=== PATIENT | female | born 1970 | race Hispanic/Latino ===

== ENCOUNTER 2024-02-05 17:52 | Emergency (ER) | payer MEDICARE ==
[~2024-02-05] VITALS: Ht 167.6 cm; Wt 137.9 kg
[2024-02-05 19:32] LABS: BASOPHILS # (AUTO) 0.05 K/uL (0.00-0.20); BASOPHILS % (AUTO) 0.5 % (0.0-5.0); EOSINOPHILS # (AUTO) 0.14 K/uL (0.00-0.70); EOSINOPHILS % (AUTO) 1.5 % (0.0-8.0); HEMATOCRIT 31.3 % (36-48); IMMATURE GRANULOCYTE ABSOLUTE 0.03 K/uL (0-1); LYMPHOCYTES # (AUTO) 2.2 K/uL (1.0-4.8); MEAN CORPUSCULAR HEMOGLOBIN 20.9 pg (27.0-33.0); MEAN CORPUSCULAR HGB CONC 29.4 g/dL (32.0-36.0); MONOCYTES # (AUTO) 0.5 K/uL (0.1-1.0); MONOCYTES % (AUTO) 5.6 % (3.0-13.0); NEUTROPHILS # (AUTO) 6.5 K/uL (1.8-7.7); NEUTROPHILS % (AUTO) 69.1 % (40.0-77.0); PLATELET COUNT (AUTO) 404 K/uL (130-400); RED BLOOD CELL COUNT(AUTO) 4.41 MIL/uL (4.00-5.50); RED CELL DISTRIBUTION WIDTH 17.3 % (11.0-15.5); WHITE BLOOD COUNT (AUTO) 9.4 K/uL (4.8-10.8)
[2024-02-05] MEDS: ACETAMINOPHEN 500 MG TABLET PO ONE (19:43)
[2024-02-05 19:47] LABS: ALBUMIN 3.5 g/dL (3.5-5.0); BILIRUBIN,TOTAL 0.3 mg/dL (0.2-1.0); TOTAL PROTEIN, SERUM 8.1 g/dL (6.0-8.3)
[2024-02-05] MEDS ORDERED: IBUP-2077 PO (20:31)
[2024-02-05 20:43] VITALS: BP 143/79; PULSE 81; RESP 20; O2SAT 99
[2024-02-05] MEDS ORDERED: ACET-2079 PO (20:44)
[2024-02-05] MEDS: HYDROCODONE/ACETAMINOPHEN 5/325 MG TAB PO SCH (21:03)
== END 2024-02-05 21:13 | disposition home or self-care (01) ==
LOC: EDH 17:52
DX: S70.02XA Contusion of left hip, initial encounter (principal); S80.02XA Contusion of left knee, initial encounter; S40.012A Contusion of left shoulder, initial encounter; E66.9 Obesity, unspecified; I10 Essential (primary) hypertension; E11.9 Type 2 diabetes mellitus without complications; J45.909 Unspecified asthma, uncomplicated; Z98.890 Other specified postprocedural states; W18.39XA Other fall on same level, initial encounter; Y93.89 Activity, other specified; Y92.89 Other specified places as the place of occurrence of the external cause; Y99.8 Other external cause status
CPT/HCPCS: 36415; 73030; 73502; 73562; 80053; 84484; 85025; 93005

== ENCOUNTER 2024-09-14 19:57 | Emergency (ER) | payer MEDICARE ==
[~2024-09-14] VITALS: Ht 170.2 cm; Wt 149.2 kg
[~2024-09-14 19:57] MED LIST: ACET-2079 PO; IBUP-2077 PO
[2024-09-14 20:26] VITALS: BP 155/92; PULSE 90; RESP 20; TEMP 97.8
--- NOTE | 2024-09-14 20:54 | ERN ---
ED Note History of Present Illness Stated Complaint: MECHANICAL FALL Chief Complaint: Ankle Problem Time Seen by MD: 19:59 Time Seen by Midlevel: 19:59 Dictation: The patient is a 54-year-old female with a history of asthma, depression , hysterectomy who presents to the emergency department requesting a cast to her right ankle. Patient reports that she fell week ago on Saturday and twisted her ankle. Reports she went to [facility] where she told her she had a fractured and referred her to orthopedic but has not been able to follow up due to insurance purposes. Patient reports she had initially a splint but it got ugly and was removed. Denies any other injuries. Allergies: Coded Allergies: No Known Allergies (Unverified Allergy, Unknown, 07/15/19) Home Meds Active Scripts Acetaminophen with Codeine (Acetaminophen-Cod #3 Tablet) 300 Mg-30 Mg Tablet, 1 TAB PO Q4H PRN for mod pain, #10 TAB Prov:AGUILA INMAN GENERAL MILLING SUPERINTENDENT 02/05/24 Ibuprofen (Ibuprofen 800 mg Tab) 800 Mg Tab, 800 MG PO Q8H PRN for fever or pain, #30 TAB 0 Refills Prov:AGUILA INMAN GENERAL MILLING SUPERINTENDENT 02/05/24 Past Medical History Past Medical History: Asthma, Depression, Hypertension, Other Additional Past Medical Hx: HX OF PTSD Surgical History: Hysterectomy History: Not Applicable RN Note Reviewed/Agreed w/PFSH: Yes Review of System Dictation Constitutional: Negative for fever,chills, and weight loss Eyes: Negative for injury, pain,redness, and discharge ENT: Negative for injury,pain or swelling Cardiovascular: Negative for chest pain, palpitations, and edema Respiratory: Negative for shortness of breath, cough, and wheezing, Abdomen/GI: Negative for abdominal pain, nausea, vomiting, diarrhea, and cons tipation Back: Negative for injury and pain : Negative for injury, bleeding and discharge MS/Extremity: Negative for injury and deformity. Positive for right ankle pain Skin: Negative for rash, and discoloration Neuro: Negative for headache, weakness, numbness, tingling, and seizure Psych: Negative for suicide ideation, homicidal ideation, and hallucinations Initial Vital Sign VS Vital Signs Date Time Temp Pulse Resp B/P (MAP) Pulse Ox O2 Delivery O2 Flow Rate FiO2 09/14/24 20:26 97.9 90 20 155/92 96 Room Air Physical Exam Dictation Vital Signs reviewed General Appearance: Alert, oriented x 3, no acute distress, well developed, nourished. Head and Face: non-traumatic. Eyes: PERRL, pink conjunctivas, eyelid no trauma, anterior chamber with arcus senilis. Ears: Pinnas intact and no signs of trauma or erythema ear canals clear and no discharge TM no erythema Nose: No discharge, no bleeding. Oropharynx: Mouth normal, tongue pink. pharynx clear,no erythema, tonsils no exudates, no abscesses noted, mucous membrane moist Neck: Supple, non-tender, no thyromegaly, no masses, no JVD, no bruits Breast:Deferred Chest:No tenderness, no crepitus, no paradoxical movement, no retractions Lungs:Clear, well-ventilated, symmetric, no rales, no wheezing, no rhonchi, no stridor, good breath sounds bilaterally Heart: Regular rate, regular rhythm, no murmur, no gallops Vascular: no peripheral edema, dorsalis pedis 3+ bilaterally Abdomen: Soft, positive bowel sounds, nondistended, no guarding, nontender, no rebound, no masses no hepatomegaly, no splenomegaly, no Dave's sign, no hernias. Rectal: Deferred Genital: Deferred Neurological: Normal speech, motor function intact, sensory function intact Musculoskeletal: Neck nontender, full range of motion, back nontender, full range of motion, Extremities: nontender, full range of motion , mild swelling to right ankle, full range of motion, no open wounds, cap refill less than 2 seconds Skin: Color pink, dry, no turgor, no rash, no lacerations, no abrasions, no contusions, Lymphatic: Deferred Results (Laboratory/Radiology) Labs Reviewed?: Yes ED Course ED Course Orders Procedure Category Date Status Time *Nursing CPOE 09/14/24 Transmitted Communication: 20:16 Vital Signs Date Time Temp Pulse Resp B/P (MAP) Pulse Ox O2 Delivery O2 Flow Rate FiO2 09/14/24 20:26 97.9 90 20 155/92 96 Room Air Medical Decision Making MDM The patient is a 54-year-old female with a history of asthma, depression , hysterectomy who presents to the emergency department requesting a cast to her right ankle. Patient reports that she fell week ago on Saturday and twisted her ankle. Reports she went to [facility] where she told her she had a fractured and referred her to orthopedic but has not been able to follow up due to insurance purposes. Patient reports she had initially a splint but it got ugly and was removed. Denies any other injuries. Patient's ankle resplinted. Patient at this time does not want another x-ray and just wants her ankle splinted. Reports she is trying to get a hold of her orthopedic and schedule a sooner appointment. Patient does not want to mother referral to orthopedic and wants to follow up with her own orthopedic that she has been following up for a shoulder injury. Patient reports she is taking [place] at home for the pain. Patient in no acute distress, nontoxic appearance, neurovascular intact. Patient refuses crutches. States she can not hop on them. Differential diagnosis: Ankle sprain, ankle fracture, compartment syndrome Need for hospitalization: Patient does not meet criteria for hospitalization. There are no social concerns with this patient. DX & DISP Disposition: Discharge Departure Impression: Primary Impression: Right ankle pain Condition: Stable Additional Instructions: Please follow up with your orthopedic as soon as possible. Please keep your spl int clean and dry. If symptoms worsen please return to ER. FOLLOW-UP WITH PRIMARY CARE PROVIDER IN 1 TO 2 DAYS. TAKE MEDICATIONS DIRECTED HERE IN THE EMERGENCY ROOM. OKAY TO CONTINUE HOME MEDICATIONS UNLESS OTHERWISE DISCUSSED DURING YOUR VISIT IN THE EMERGENCY ROOM TODAY. RETURN TO YOUR NEAREST EMERGENCY ROOM IF SYMPTOMS WORSEN OR IF THERE IS NO IMPROVEMENT. CALL 911 IF YOU NEED IMMEDIATE ASSISTANCE. TAKE TYLENOL OR MOTRIN [id number] NEEDED AND IF NO CONTRAINDICATIONS ARE PRESENT. INCREASE ORAL HYDRATION. A WOUND CULTURE OR URINE CULTURE WAS ORDERED HERE IN THE EMERGENCY ROOM DEPARTMENT PLEASE FOLLOW-UP WITH PRIMARY CARE PROVIDER AND ADVISE THEM TO GET REPEAT PORTS FROM OUR FACILITY. IF YOU HAD ANY BISMARK WRAP/SPLINTS THAT WERE APPLIED HERE, PLEASE DO NOT REMOVE THEM UNTIL YOU SEE YOUR PRIMARY CARE OR SPECIALTY. Referrals: RADU ARCINIEGA MD (PCP) Time of Disposition: 21:03 I have reviewed the case, and I agree with, Diagnosis and Plan GIL SWIFT Sep 14, 2024 20:54
== END 2024-09-14 21:20 | disposition home or self-care (01) ==
LOC: EDH 19:57
DX: M25.571 Pain in right ankle and joints of right foot (principal); I10 Essential (primary) hypertension; J45.909 Unspecified asthma, uncomplicated; F32.A Depression, unspecified; Z90.710 Acquired absence of both cervix and uterus; X50.1XXA Overexertion from prolonged static or awkward postures, initial encounter; Y93.89 Activity, other specified; Y92.89 Other specified places as the place of occurrence of the external cause; Y99.8 Other external cause status
CPT/HCPCS: 29515; 99283

== ENCOUNTER 2025-07-09 07:55 | Day surgery (SDC) | payer MEDICARE ==
[2025-07-07 12:45] LABS: IMMATURE GRANULOCYTE ABSOLUTE 0.01 K/uL (0-1); NUCLEATED RED BLOOD CELLS 0.0 % (0.0-0.19); PLATELET COUNT (AUTO) 321 K/uL (130-400); RED BLOOD CELL COUNT(AUTO) 4.32 MIL/uL (4.00-5.50); RED CELL DISTRIBUTION WIDTH 15.6 % (11.0-15.5); WHITE BLOOD COUNT (AUTO) 6.7 K/uL (4.8-10.8)
[2025-07-07 12:52] LABS: CREATININE 0.8 mg/dL (0.5-1.0); GLOMERULAR FILTR. RATE CALC 88.0 mL/min (>90); GLUCOSE,RANDOM 99.0 mg/dL (70-105); SODIUM SERUM 141.0 mmol/L (136-145); UREA NITROGEN, BLOOD 12.0 mg/dL (7-18)
[2025-07-07 12:55] LABS: INR 0.96 (0.85-1.15)
[2025-07-07 13:03] VITALS: BP 145/89; PULSE 66; RESP 17; TEMP 97.3
[~2025-07-09] VITALS: Ht 170.2 cm; Wt 140.4 kg
[2025-07-09] VITALS (17 sets, daily range): BP systolic 100–147; BP diastolic 50–78; PULSE 50–73; RESP 14–20; TEMP 97.2–97.5
[~2025-07-09 07:55] MED LIST changes: -ACET-2079 PO; -IBUP-2077 PO; +LIDOCAINE PF 100MG/5ML (2%) SYRINGE 5ML ONE; +MIDAZOLAM HCL 1 MG/ML 2ML VIAL ONE
[2025-07-09] MEDS ORDERED: SUCCINYLCHOLINE CHLORIDE 20 MG/ML 10 ML VIAL ONE (08:32)
[2025-07-09] MEDS: LACTATED RINGERS 1000ML 1,000 ML IV ONE (08:51)
[2025-07-09] MEDS ORDERED: GLYCOPYRROLATE 0.2 MG/ML 5 ML VIAL ONE ×2 (10:12→13:03)
[2025-07-09] MEDS ORDERED: NEOSTIGMINE METHYLSULFATE 1MG/ML IV ONE (12:49)
--- NOTE | 2025-07-09 15:41 | NUR ---
Full and complete discharge instructions given to Patient and Family both verbally and in writing. Neurovascularly intact. Stated Pain a 1-2. SO at side appearing very supportiveTolerated fluids and voided in bathroom. PIV removed with catheter tip intact. W/C to POV with Family to home.
--- NOTE | 2025-07-09 19:47 | OP ---
Operative Note: DATE OF PROCEDURE: 07/09/25 SURGEON: BHUMI RODRIGUEZ MD SURGICAL TRAINING SPECIALIST: Go Jackson ANESTHESIA: General ANESTHESIOLOGIST/LAB DIRECTOR: Red Fox CRNA PREOPERATIVE DIAGNOSIS: Right shoulder rotator cuff tear, labral tear, subacromial impingement, acromioclavicular joint osteoarthritis POSTOPERATIVE DIAGNOSIS: Right shoulder rotator cuff tear, labral tear, subacromial impingement, acromioclavicular joint osteoarthritis PROCEDURE: Right shoulder arthroscopic rotator cuff repair, labral debridement, subacromial decompression, distal clavicle excision ESTIMATED BLOOD LOSS: 10 cc FINDINGS: On insertion of the arthroscope into the joint we noted significant diffuse synovitis present. High-grade partial-thickness tearing of the rotator cuff adjacent to the long head of the biceps tendon. Near full-thickness tearing in the anterior portion of the supraspinatus. Degenerative tearing of the labrum. Biceps anchor intact with healthy-appearing biceps. The remainder of the rotator cuff appeared intact. We debrided the rotator cuff synovium and labrum. We then used an 18 gauge spinal needle and a PDS suture to valorie the partial-thickness tear. We identified this region after resecting the subacromial bursa and completed the tear. It was repaired with the single SwiveLock anchor. Distal clavicle was resected and a lateral bone spurs from the subacromial space were removed. INDICATIONS: 54-year-old female with a history of right shoulder pain. They were failing conservative management and found on MRI to have high-grade partial-thickness tearing of the rotator cuff. Clinically they also had evidence of subacromial impingement and symptomatic AC joint osteoarthritis. After discussion of the risk, benefits, and alternatives, the patient voluntarily agreed to undergo the aforementioned procedure. DESCRIPTION OF PROCEDURE: Patient was properly identified in the preoperative holding area. Surgical site marking was verified and surgery consent reviewed. The patient was then taken to the operating room and placed in supine position on the OR table. After induction of general anesthesia, preoperative antibiotics were given, all bony prominences were well-padded as the patient was transitioned into beachchair position. The right upper extremity was then prepped and draped in usual sterile fashion. Surgical timeout was done verifying correct surgery, side, site, and location to be performed. We then began the procedure by using an 18-gauge spinal needle to inject the shoulder joint with normal saline to distend the joint capsule. A posterior lateral portal was established using 11 blade and we inserted our arthroscope through this portal. We established an anterior portal using needle localization under direct visualization and placed a working cannula through this portal. We then performed a diagnostic arthroscopy with the aforementioned findings. We then evaluated the tear in the supraspinatus and upon probing it found this to be a high-grade tear. We debrided the footprint of the insertion site back to healthy bleeding bone. We marked the region of partial-thickness with a 0 PDS. We then further debrided the hypertrophic synovium and degenerative labral tearing. The labrum was resected back to a healthy leading edge that was stable. We then repositioned the arthroscope and working portal was established laterally into the subacromial space. Using the ArthroCare Wand and a shaver device we performed a subacromial decompression removing the bursal tissue. We were then able to identify incomplete the tear in the most anterior portion of the supraspinatus. Using the scStreetlineion suture passer device, we then passed a FiberTape through the rotator cuff tear in a mattress fashion. These were then secured to the humerus using when SwiveLock anchor. We then repositioned the anterior portal into the subacromial space. We used the bur through the anterior portal to resect the lateral 8 mm of the distal clavicle. From a lateral portal we used the bur to resect the lateral acromial osteophytes and a proximally 2 mm of the undersurface of the acromion. We then removed as much of the arthroscopic fluid as possible and removed the arthroscopic instruments and camera. We expressed some the remaining fluid from the surrounding soft tissues. 3-0 nylon was then used to close the skin portals. Sterile soft dressing was applied. Patient was then placed into a shoulder immobilizer, awakened from anesthesia, and taken the recovery room in stable condition. BHUMI RODRIGUEZ MD Jul 09, 2025 19:47
== END 2025-07-09 15:40 | disposition home or self-care (01) ==
LOC: DAH 07:55
PROVIDERS: ATTEND Student in an Organized Health Care Education/Training Program
DX: M75.111 Incomplete rotator cuff tear or rupture of right shoulder, not specified as traumatic (principal); M75.41 Impingement syndrome of right shoulder; M19.011 Primary osteoarthritis, right shoulder; M24.111 Other articular cartilage disorders, right shoulder; I10 Essential (primary) hypertension; K21.9 Gastro-esophageal reflux disease without esophagitis; J45.909 Unspecified asthma, uncomplicated; E66.9 Obesity, unspecified; M19.90 Unspecified osteoarthritis, unspecified site; F41.9 Anxiety disorder, unspecified; F32.A Depression, unspecified; F43.10 Post-traumatic stress disorder, unspecified; M25.811 Other specified joint disorders, right shoulder; G47.33 Obstructive sleep apnea (adult) (pediatric); Z99.89 Dependence on other enabling machines and devices; Z90.710 Acquired absence of both cervix and uterus; M62.81 Muscle weakness (generalized); Z98.51 Tubal ligation status; Z79.01 Long term (current) use of anticoagulants; Z68.42 Body mass index [BMI] 45.0-49.9, adult; Z79.899 Other long term (current) drug therapy
CPT/HCPCS: 80048; 85025; 85610; 85730; 36415; 29827; 29824; 29826; J1885; A4663; J7030; A4565; J0690 ×3; J7120; J3010 ×3; J1100; J0330; J3490 ×6; J2003; J0169 ×4; J2250; J2704; J2405; J2710; J2371; A6223; A4930; A4649; C1713; A4215 ×2; A4213; A4222; A4216; A4450; A4223 ×2; A4221; A4600

== ENCOUNTER 2025-07-11 18:25 | Emergency (ER) | payer MEDICARE ==
[~2025-07-11] VITALS: Ht 175.3 cm; Wt 141.5 kg
[2025-07-11 18:28] VITALS: BP 193/110; PULSE 91; RESP 18; TEMP 98.7
--- NOTE | 2025-07-11 18:37 | ERN ---
ED Note History of Present Illness Stated Complaint: RT SHOULDER PAIN S/P SURGERY Chief Complaint: Shoulder Injury/Pain Time Seen by MD: 18:28 Dictation: PATIENT IS A 54-YEAR-OLD FEMALE HERE WITH SEVERE RIGHT SHOULDER PAIN AFTER HAVING A ROTATOR CUFF REPAIR DONE AT [facility] ON SATURDAY BY DR. BHUMI RODRIGUEZ. SHE STATES SHE WENT HOME AFTER THE SURGERY, DR. RODRIGUEZ HAD PRESCRIBED HER HYDROCODONE AND ITS SENT IT TO THE [facility] THAT IS NOW CLOSED FOR THE FLOOD. SHE STATES SHE HAD TWO WITH A NORCO LEFT AND HAS BEEN ATTEMPTING TO GET A HOLD OF DR. RODRIGUEZ WITHOUT SUCCESS. SHE IS HERE FOR FURTHER EVALUATION AND TREATMENT WOULD LIKE TO HAVE A REFILL OF THE MEDICATIONS ARE TO BE ADMITTED TO THE HOSPITAL FOR PAIN MANAGEMENT DISTAL NEUROVASCULAR CMS INTACT THERE WAS NO FEVER NO CHILLS NO NAUSEA VOMITING. Allergies: Coded Allergies: No Known Allergies (Unverified Allergy, Unknown, 07/15/19) Home Meds Active Scripts Cyclobenzaprine HCl (Cyclobenzaprine HCl) 5 Mg Tablet, 1 TAB PO TIDP PRN for muscle spasms for 10 Days, #30 TAB 0 Refills Prov:BHUMI RODRIGUEZ MD 07/09/25 Hydrocodone/Acetaminophen (Hydrocodon-Acetaminophen 5-325) 5 Mg-325 Mg Tablet, 1-2 TAB PO Q6HPRN PRN for pain, #56 TAB 0 Refills Prov:BHUMI RODRIGUEZ MD 07/09/25 Reported Medications [Linzess] 145 No Conflict Check, 145 MCG PO AD PRN for CONSTIPATION 07/07/25 Buspirone HCl (Buspirone HCl) 5 Mg Tablet, 5 MG PO BID, TAB 07/07/25 Meloxicam (Meloxicam) 15 Mg Tablet, 15 MG PO DAILY PRN for PAIN, TAB 07/07/25 Fluoxetine HCl (Fluoxetine HCl) 40 Mg Capsule, 40 MG PO DAILY, CAP 07/07/25 Amlodipine Besylate (Amlodipine Besylate) 5 Mg Tablet, 5 MG PO DAILY, TAB 07/07/25 Fluticasone/Umeclidin/Vilanter (Trelegy Ellipta 200-62.5-25) 200-62.5 Blst.w.dev, 2 EACH IH DAILY 07/07/25 Omeprazole (Omeprazole) 40 Mg Capsule.dr, 40 MG PO AM, CAP 07/07/25 Zolpidem Tartrate (Ambien) 10 Mg Tablet, 10 MG PO HS PRN for SLEEP, TAB 07/07/25 Trazodone HCl (Trazodone HCl) 100 Mg Tablet, 200 MG PO HS, TAB 07/07/25 Discontinued Scripts Acetaminophen with Codeine (Acetaminophen-Cod #3 Tablet) 300 Mg-30 Mg Tablet, 1 TAB PO Q4H PRN for mod pain, #10 TAB Prov:STORMAGUILA FUEL CONVERSION TECHNICIAN 02/05/24 Ibuprofen (Ibuprofen 800 mg Tab) 800 Mg Tab, 800 MG PO Q8H PRN for fever or pain, #30 TAB 0 Refills Prov:AGUILA INMAN Rafy FUEL CONVERSION TECHNICIAN 02/05/24 Past Medical History Past Medical History: Asthma, Depression, Hypertension, Other Additional Past Medical Hx: HX OF PTSD Surgical History: Hysterectomy History: Not Applicable RN Note Reviewed/Agreed w/PFSH: Yes Review of System Dictation CONSTITUTIONAL: NEGATIVE EXCEPT FOR HPI HEAD/FACE: NEGATIVE EXCEPT FOR HPI EENT: NEGATIVE EXCEPT FOR HPI RESPIRATORY: NEGATIVE EXCEPT FOR HPI GASTROINTESTINAL/ABDOMINAL: NEGATIVE EXCEPT FOR HPI GENITOURINARY: NEGATIVE EXCEPT FOR HPI MUSCULOSKELETAL: NEGATIVE EXCEPT FOR HPI RIGHT SHOULDER PAIN INTEGUMENTARY: NEGATIVE EXCEPT FOR HPI NEUROLOGICAL/PSYCH: NEGATIVE EXCEPT FOR HPI HEMATOLOGIC/LYMPHATIC: NEGATIVE EXCEPT FOR HPI ALL SYSTEMS NEGATIVE, EXCEPT NOTED ABOVE. 13 POINT REVIEW OF SYSTEMS ASSESSED AND ALL NEGATIVE EXCEPT FOR ABOVE. Initial Vital Sign VS Vital Signs Date Time Temp Pulse Resp B/P (MAP) Pulse Ox O2 Delivery O2 Flow Rate FiO2 07/11/25 18:28 98.8 91 18 193/110 99 Room Air 0 Physical Exam Dictation VITAL SIGNS REVIEWED GENERAL APPEARANCE: ALERT, ORIENTED X 3, SEVERE ACUTE DISTRESS, WELL DEVELOPED, NOURISHED. HEAD AND FACE: NON-TRAUMATIC. EYES: PERRL, PINK CONJUNCTIVAS, EYELID NO TRAUMA, ANTERIOR CHAMBER WITH ARCUS SENILIS. EARS: PINNAS INTACT AND NO SIGNS OF TRAUMA OR ERYTHEMA EAR CANALS CLEAR AND NO DISCHARGE TM NO ERYTHEMA NOSE: NO DISCHARGE, NO BLEEDING. OROPHARYNX: MOUTH NORMAL, TONGUE PINK, PHARYNX CLEAR,NO ERYTHEMA, TONSILS NO EXUDATES, NO ABSCESSES NOTED, MUCOUS MEMBRANE MOIST NECK: SUPPLE, NON-TENDER, NO THYROMEGALY, NO MASSES, NO JVD, NO BRUITS BREAST:DEFERRED CHEST:NO TENDERNESS, NO CREPITUS, NO PARADOXICAL MOVEMENT, NO RETRACTIONS LUNGS:CLEAR, WELL-VENTILATED, SYMMETRIC, NO RALES, NO WHEEZING, NO RHONCHI, NO STRIDOR, GOOD BREATH SOUNDS BILATERALLY HEART: REGULAR RATE, REGULAR RHYTHM, NO MURMUR, NO GALLOPS VASCULAR: NO PERIPHERAL EDEMA, ABDOMEN: SOFT, POSITIVE BOWEL SOUNDS, NONDISTENDED, NO GUARDING, NONTENDER, NO REBOUND, NO MASSES NO HEPATOMEGALY, NO SPLENOMEGALY, NO VINCENT'S SIGN, NO HERNIAS. RECTAL: DEFERRED GENITAL: DEFERRED NEUROLOGICAL: NORMAL SPEECH, MOTOR FUNCTION INTACT, SENSORY FUNCTION INTACT MUSCULOSKELETAL: NECK NONTENDER, FULL RANGE OF MOTION, BACK NONTENDER, FULL RANGE OF MOTION, EXTREMITIES: NONTENDER, FULL RANGE OF MOTION SKIN: COLOR PINK, DRY, NO TURGOR, NO RASH, NO LACERATIONS, NO ABRASIONS, NO CONTUSIONS. LYMPHATIC: DEFERRED Results (Laboratory/Radiology) Labs Reviewed?: Yes ED Course ED Course Orders Procedure Category Date Status Time Hydrocodone/Apap PHA 07/11/25 Logged 5/325 (Dinosaur 5/325mg) 19:00 Ketorolac 60mg/2ml PHA 07/11/25 Logged (Toradol 60mg/2ml) 19:00 Current Medications Medications (Trade) Dose Ordered Sig/Nancie Route PRN Reason Start Time Stop Time Status Last Admin Dose Admin Acetaminophen/ Hydrocodone Bitart (NORco 5/325MG) 2 tab ONCE ONCE PO 07/11/25 19:00 07/11/25 19:01 UNV Ketorolac Tromethamine (toRADol 60MG/ 2ML) 60 mg ONCE ONCE IM 07/11/25 19:00 07/11/25 19:01 UNV Vital Signs Date Time Temp Pulse Resp B/P (MAP) Pulse Ox O2 Delivery O2 Flow Rate FiO2 07/11/25 18:28 98.8 91 18 193/110 99 Room Air 0 1835/PATIENT WILL BE GIVEN NORCO 5/325, TWO TABLETS BY MOUTH SHE WILL BE GIVEN TORADOL 60 MG IM WE WILL FOLLOW UP WITH DR. RODRIGUEZ FOR FOR MANAGEMENT 1841/SPOKE WITH DR. RODRIGUEZ AND SHE SAID TO ASK PATIENT WHICH PHARMACY SHE WANTED THE NEW PRESCRIPTION SENT TO PATIENT ELECTED FOR [facility] [address] IN [facility] DR. RODRIGUEZ SAID SHE WOULD SEND A PRESCRIPTION NOW. Medical Decision Making MDM MEDICAL DECISION-MAKING BASED ON EMPIRIC TREATMENT FOR PAIN STATUS POST SURGERY. SPOKE WITH BHUMI RODRIGUEZ ORTHOPEDIC SURGEON AND SHE SENT A NEW PRESCRIPTION TO [facility] THAT PATIENT ELECTED PATIENT DISCHARGED HOME DX & DISP Disposition: Discharge Departure Impression: Primary Impression: Postoperative pain, acute, shoulder Condition: Stable Additional Instructions: FOLLOW-UP WITH PRIMARY CARE PROVIDER IN 1 TO 2 DAYS. TAKE MEDICATIONS DI RECTED HERE IN THE EMERGENCY ROOM. OKAY TO CONTINUE HOME MEDICATIONS UNLESS OTHERWISE DISCUSSED DURING YOUR VISIT IN THE EMERGENCY ROOM TODAY. RETURN TO YOUR NEAREST EMERGENCY ROOM IF SYMPTOMS WORSEN OR IF THERE IS NO IMPROVEMENT. CALL 911 IF YOU NEED IMMEDIATE ASSISTANCE. TAKE TYLENOL OR MOTRIN [id number] NEEDED AND IF NO CONTRAINDICATIONS ARE PRESENT. INCREASE ORAL HYDRATION. A WOUND CULTURE OR URINE CULTURE WAS ORDERED HERE IN THE EMERGENCY ROOM DEPARTMENT PLEASE FOLLOW-UP WITH PRIMARY CARE PROVIDER AND ADVISE THEM TO GET REPEAT PORTS FROM OUR FACILITY. IF YOU HAD ANY BISMARK WRAP/SPLINTS THAT WERE APPLIED HERE, PLEASE DO NOT REMOVE THEM UNTIL YOU SEE YOUR PRIMARY CARE OR SPECIALTY. PROCEED IMMEDIATELY TO THE [facility] ON [address] IN [facility]. TO INTERVENTIONAL TECHNOLOGIST THE PRESCRIPTION. ALTHOUGH THE INSTRUCTIONS AND MEDICATIONS FROM DR. BHUMI RODRIGUEZ AND SEE HER N EXT WEEK INSTRUCTED Referrals: RADU ARCINIEGA MD (PCP) I have reviewed the case, and I agree with AGUILA INMAN FUEL CONVERSION TECHNICIAN Jul 11, 2025 18:37
[2025-07-11] MEDS: HYDROcodone/APAP 5/325 1 TAB TABLET PO ONE (18:52)
== END 2025-07-11 19:10 | disposition home or self-care (01) ==
LOC: EDH 18:25
DX: G89.18 Other acute postprocedural pain (principal); M25.511 Pain in right shoulder; F32.A Depression, unspecified; I10 Essential (primary) hypertension; J45.909 Unspecified asthma, uncomplicated; Z79.899 Other long term (current) drug therapy; Z90.710 Acquired absence of both cervix and uterus; Z98.890 Other specified postprocedural states
CPT/HCPCS: 99283; 96372; J1885